=== PATIENT | female | born 1955 | race Caucasian/White ===

== ENCOUNTER 2021-10-18 15:40 | Emergency (ER) | payer MEDICARE, SELFPAY ==
[2021-10-18 15:52] VITALS: BP 121/78; PULSE 75; RESP 18; TEMP 36.2; O2SAT 98
--- NOTE | 2021-10-18 16:05 | ED.GENADULT ---
HPI - General Adult General Chief complaint: Upper Respiratory Infection Stated complaint: runny nose,cough,lt earache Source: patient Mode of arrival: ambulatory Limitations: no limitations History of Present Illness HPI narrative: Patient presents for evaluation of respiratory symptoms. She reports sinus congestion, clear rhinorrhea, bilateral ear pressure and productive cough. She states she has been seen at three other facilities for similar symptoms. At her first facility no diagnostic testing was performed and she was given doxycycline. She states her symptoms did not improve. She was then given a script for levaquin. She states symptoms did not improve. She went to [facility] on 09/18/21 and was given scripts for tessalon, albuterol and medrol dose pa. She initially had improvement in her symptoms with recurrence thereafter. No fever, chills, nausea, vomiting, diarrhea, SOB. She states she woke from sleep this morning with some right sided chest discomfort that she is confident was related to the position in which she slept. No left sided chest pain. She has received two COVID vaccinations and two boosters. She states her grandson, with whom she has been spending time, has similar symptoms. She had COVID in April of this year. She states she was hospitalized in the past after influenza progressed into pneumococcal pneumonia. Related Data Home Medications Medication Instructions Recorded Confirmed Prevacid 10/18/21 clonazepam 10/18/21 trazodone 100 mg tablet 1 tablet DAILY 10/18/21 10/18/21 Allergies Allergy/AdvReac Type Severity Reaction Status Date / Time amoxicillin [From Amoxil] Allergy Unknown Verified 10/18/21 16:03 erythromycin base Allergy Unknown Verified 10/18/21 16:03 Review of Systems Review of Systems: CONSTITUTIONAL: Denies fever, chills, or sweats. EYES: Denies visual changes, redness, or discharge. ENT: Reports sinus congestion, clear rhinorrhea and bilateral ear pressure CARDIOVASCULAR: Reports right sided chest discomfort. Denies left sided chest pain, palpitations, or edema. RESPIRATORY: Reports productive cough of clear/white sputum. Denies SOB GASTROINTESTINAL: Denies abdominal pain, nausea, vomiting, or diarrhea. GENITOURINARY: Denies dysuria or hematuria. SKIN: Denies rash or itching. MUSCULOSKELETAL: Denies back pain, joint pain, or myalgia. NEUROLOGIC: Denies headache, numbness, dizziness, or weakness. PSYCHIATRIC: Denies anxiety or depression. PMFSH Past Medical History Medical History (Updated 10/18/21 @ 16:36 by HECTOR Truong, ) Anxiety GERD (gastroesophageal reflux disease) Insomnia Surgical History Surgical History History of Family History Family History Mother Family history non-contributory Social History Social History Smoking status: Former smoker Substance use: never Living arrangements: with family Gender identity (if verbalized by the patient): Female Spiritual care concerns: No Exam Narrative: GENERAL: Well-appearing, well-nourished, and in no acute distress. HEAD: Normocephalic, atraumatic. EYES: PERRLA and EOMI. ENT: Nares clear, no rhinorrhea or epistaxis. Mucous membranes moist. Posterior pharyngeal erythema without exudate. Uvula midlein. Bilateral TM's erythematous with middle ear fluid present NECK: Supple. No adenopathy or masses. No carotid bruits or JVD CHEST: Clear to auscultation. No respiratory distress. No wheezes rales or rhonchi HEART: Regular rate and rhythm. No murmur heard. Normal peripheral pulses. ABDOMEN: Soft, nontender, nondistended, normal active bowel sounds. EXTREMITIES: Normal range of motion. No edema. SKIN: Warm, dry, no rash. NEURO: No focal deficits. Alert and oriented x3. PSYCH: Normal mood and
== END 2021-10-18 16:40 | disposition home or self-care (01) ==
PROVIDERS: Emergency Provider Nurse Practitioner
DX: J18.9 Pneumonia, unspecified organism (principal); Z20.822 Contact with and (suspected) exposure to COVID-19; Z87.891 Personal history of nicotine dependence; K21.9 Gastro-esophageal reflux disease without esophagitis
CPT/HCPCS: 87426; 87804; 99203; C9803; G0463